=== PATIENT | male | born 1980 | race Hispanic/Latino ===

== ENCOUNTER 2024-03-15 20:36 | Emergency (ER) | payer SELFPAY ==
--- NOTE | ~2024-03-15 | XR_ITS ---
XR elbow RT min 3V Ordering provider: Julio Reese History: . fall, deformity . Comparison: None. FINDINGS: BONES: No acute fracture or dislocation. Ossification of the insertion of the triceps muscle is seen in the ulna. JOINT SPACES: Normal. SOFT TISSUES: Soft tissue swelling is seen posteriorly. No definite joint effusion. IMPRESSION: No acute osseous abnormality right elbow. Soft tissue swelling seen over the olecranon of the ulna. O ssification of the insertion of the triceps muscle. Reviewed, dictated and finalized at location A. IMPRESSION: No acute osseous abnormality right elbow. Soft tissue swelling seen over the ol ecranon of the ulna. Ossification of the insertion of the triceps muscle.
[2024-03-15 20:45] VITALS: BP 124/67; PULSE 85; RESP 18; TEMP 36.8; O2SAT 99
--- NOTE | 2024-03-15 22:48 | ED.GENADULT ---
HPI - General Adult General Chief complaint: Extremity Injury, Upper Stated complaint: fall Time Seen by Provider: 03/15/24 22:26 History of Present Illness HPI narrative: Patient is a 43-year-old male who presents to the emergency department this evening after a on his right elbow. Patient's states that he was doing a dance move and accidentally fell and landed right on his right elbow. Patient does have some swelling noted to the dorsum of the right upper extremity around the elbow joint and below it. Patient is able to move his right elbow without any difficulty and states that it is not really bothering him right now. His friend prompted him to come to the emergency department due to concern that tomorrow his can wake up with a lot of pain. No additional injuries or concerns at this time. Review of Systems Review of Systems: All systems are reviewed and are negative unless stated otherwise in the HPI. Exam Narrative: The patient was evaluated by myself in the emergency department. History is obtained from patient who is an independent historian and physical exam was performed. External medical records were reviewed at this time. Patient refused any pain medications at this time stating that he is not in a lot of pain. Imaging studies obtained included right elbow x-ray which was independently interpreted by me revealing no acute process, which is pending final radiology interpretation. Differential diagnosis considerations include elbow fracture, sprain, dislocation. Comorbidities impacting this visit include none. I have evaluated and discussed social determinants of health with the patient that could potentially impact subsequent diagnosis and treatment plans. On repeat assessment of the patient, reevaluation revealed that the patient is doing well and is in no acute distress. Patient symptoms have remained stable since he arrived to our emergency department. Repeat vital signs were all reviewed and noted to be stable. Differential diagnosis and treatment plan were discussed with the patient at bedside. Patient agrees with discussion and after shared medical decision making agrees with discharge. All questions were answered to the patient's satisfaction. Patient will follow up with his PCP in 3-5 days. He was instructed to rest and ice his shoulder joint and take ibuprofen and/or Tylenol as needed for pain. Patient was provided with strict return precautions and instructed to return to the emergency department if any new or worsening symptoms develop. The patient was discharged in stable condition. Course Vital Signs Vital signs: Vital Signs Temperature 98.2 F 03/15/24 20:45 Pulse Rate 85 03/15/24 20:45 Respiratory Rate 18 03/15/24 20:45 Blood Pressure 124/67 03/15/24 20:45 Pulse Oximetry 99 03/15/24 20:45 Oxygen Delivery Room Air 03/15/24 20:45 Temperature 98.2 F 03/15/24 20:45 Pulse Rate 85 03/15/24 20:45 Respiratory Rate 18 03/15/24 20:45 Blood Pressure 124/67 03/15/24 20:45 Pulse Oximetry 99 03/15/24 20:45 Oxygen Delivery Room Air 03/15/24 20:45 Medical Decision Making Vital Signs Vital Signs: Vital Signs Temperature 98.2 F 03/15/24 20:45 Pulse Rate 85 03/15/24 20:45 Respiratory Rate 18 03/15/24 20:45 Blood Pressure 124/67 03/15/24 20:45 Pulse Oximetry 99 03/15/24 20:45 Oxygen Delivery Room Air 03/15/24 20:45 Temperature 98.2 F 03/15/24 20:45 Pulse Rate 85 03/15/24 20:45 Respiratory Rate 18 03/15/24 20:45 Blood Pressure 124/67 03/15/24 20:45 Pulse Oximetry 99 03/15/24 20:45 Oxygen Delivery Room Air 03/15/24 20:45 Discharge Plan Discharge Clinical Impression: Elbow injury Patient Disposition: Home, Self-Care Condition: Improved Instructions: Antibiotic Form, Elbow Sprain (ED) Additional Instructions: Please follow-up with your family doctor within the next 3-5 days. Take ibupr
[2024-03-15 22:57] VITALS: BP 145/90; PULSE 67; RESP 18; O2SAT 100
== END 2024-03-15 22:59 | disposition home or self-care (01) ==
PROVIDERS: Emergency Provider Emergency Medicine
DX: S59.901A Unspecified injury of right elbow, initial encounter (principal); W18.39XA Other fall on same level, initial encounter; Y93.41 Activity, dancing
CPT/HCPCS: 73080; 99283

== ENCOUNTER 2024-09-21 22:12 | Emergency (ER) | payer SELFPAY ==
--- NOTE | ~2024-09-21 | XR_ITS ---
EXAMINATION: XR hand LT min 3V DATE: 09/21/2024 22:34 INDICATION: Left hand injury. TECHNIQUE: 3 views of left hand were obtained. COMPARISON: None. FINDINGS: There is a transverse fracture of diaphysis of second proximal phalanx in near-anatomic ali gnment. There is mild osteoarthritis of first carpometacarpal joint, first metacarpophalangeal joint, and first interphalangeal joint. IMPRESSION: 1. Transverse fracture of diaphysis of second proximal phalanx. Reviewed, dictated and finalized at location A. [facility]
[2024-09-21 22:17] VITALS: BP 114/68; PULSE 72; RESP 15; TEMP 36.6; O2SAT 100
--- NOTE | 2024-09-21 22:18 | ED.GENADULT ---
HPI - General Adult General Chief complaint: Extremity Injury, Upper Stated complaint: squeezed finger with metal Time Seen by Provider: 09/21/24 22:18 Source: patient and family Mode of arrival: ambulatory Limitations: language barrier History of Present Illness HPI narrative: This is a 43-year-old male presents to the ED for chief complaint of finger injury that occurred earlier today. Patient is Grenadian-speaking and his is here translating. Patient reports that he smashed his finger in a metal frame working on his car. Reports this happened around 1530. States originally he had pain but the bruising and swelling has increased since injury. Denies any further sites of pain or injury. Related Data Allergies Allergy/AdvReac Type Severity Reaction Status Date / Time No Known Drug Allergies Allergy Other Verified 09/21/24 22:21 Review of Systems Review of Systems: All systems as dictated in HPI Exam Narrative: GENERAL: Well-appearing, well-nourished, and in no acute distress. HEAD: Normocephalic, atraumatic. EYES: PERRLA and EOMI. ENT: Nares clear, no rhinorrhea or epistaxis. Mucous membranes moist. Oropharynx without tonsillar hypertrophy exudate or other lesions. NECK: Supple. No adenopathy or masses. CHEST: No respiratory distress. Clear to auscultation. No wheezes rales or rhonchi HEART: Regular rate and rhythm. No murmur heard. Normal peripheral pulses. ABDOMEN: Soft, nontender, nondistended, normal active bowel sounds. MSK: Left upper extremity: Tenderness to proximal phalanx of the 2nd digit. Moderate swelling and bruising to this region. Cap refill and sensation intact distally. Able to fully extend the finger but cannot make a fist. Right upper extremity: Benign SKIN: Warm, dry, no rash. NEURO: Alert and oriented x4. No focal deficits. PSYCH: Normal mood and affect. Course Vital Signs Vital signs: Vital Signs Temperature 97.9 F 09/21/24 22:17 Pulse Rate 72 09/21/24 22:17 Respiratory Rate 15 09/21/24 22:17 Blood Pressure 114/68 09/21/24 22:17 Pulse Oximetry 100 09/21/24 22:17 Temperature 97.9 F 09/21/24 22:17 Pulse Rate 72 09/21/24 22:17 Respiratory Rate 15 09/21/24 22:17 Blood Pressure 114/68 09/21/24 22:17 Pulse Oximetry 100 09/21/24 22:17 Medical Decision Making MDM Narrative Medical decision making narrative: This is a 43-year-old male who presents to the ED for chief complaint of left hand injury that occurred earlier today. Vitals are normal. Exam shows tenderness along the left hand 2nd proximal phalanx. Left hand x-ray: IMPRESSION: 1. Transverse fracture of diaphysis of second proximal phalanx. Patient was given Concrete for pain here. Rx for Concrete for breakthrough pain at home. Referral given for hand surgeon. Finger splint placed here. Patient will be discharged in stable condition. Supportive measures discussed and return precautions given. Patient is understanding and agreeable with plan for discharge with PCP/ hand follow-up. Vital Signs Vital Signs: Vital Signs Temperature 97.9 F 09/21/24 22:17 Pulse Rate 72 09/21/24 22:17 Respiratory Rate 15 09/21/24 22:17 Blood Pressure 114/68 09/21/24 22:17 Pulse Oximetry 100 09/21/24 22:17 Temperature 97.9 F 09/21/24 22:17 Pulse Rate 72 09/21/24 22:17 Respiratory Rate 15 09/21/24 22:17 Blood Pressure 114/68 09/21/24 22:17 Pulse Oximetry 100 09/21/24 22:17 Discharge Plan Discharge Clinical Impression: Fracture of proximal phalanx of digit of hand Patient Disposition: Home, Self-Care Condition: Stable Instructions: Antibiotic Form Additional Instructions: Exam and imaging today show fracture of the proximal phalanx of the index finger. Please use finger splint and follow-up with hand surgeon for further evaluation and treatment. Please take ibuprofen 600 mg every 6 hours for regular pain control. Use the Concrete for breakthrough pain with the ibuprofen is not working. If you have any new or worsening symptoms please return to the ER for further evaluation. Patient Language: Grenadian Prescriptions: New hydrocodone-acetaminophen 5-325 mg tablet 1 tablet PO Q8H PRN (Reason: pain) Qty: 12 0RF Follow-up/Referrals: Aspen Candelaria MD [Physician] - UNKNOWN,DOCTOR [Non-Staff] - Time of Disposition: 23:00
[2024-09-21] MEDS: HYDROcodone/acetaminophen (*CRX) 5-325 MG TABLET 1 TAB PO (22:53)
[2024-09-21] MEDS: TETANUS,DIPHTHERIA,AC PERTUSSIS ADULT (0.5 ML) BOOSTRIX IM (22:54)
[2024-09-21 23:17] VITALS: BP 137/86; PULSE 84; RESP 18; O2SAT 99
== END 2024-09-21 23:16 | disposition home or self-care (01) ==
PROVIDERS: Emergency Provider Physician Assistant
DX: S62.611A Displaced fracture of proximal phalanx of left index finger, initial encounter for closed fracture (principal); Z23 Encounter for immunization; W23.1XXA Caught, crushed, jammed, or pinched between stationary objects, initial encounter
CPT/HCPCS: 29130; 73130; 90471; 90715; 99284; A9270

== ENCOUNTER 2024-09-24 14:26 | Outpatient (CLI) | payer SELFPAY ==
--- NOTE | ~2024-09-24 | XR_ITS ---
EXAM: XR hand LT min 3V DATE: 09/24/2024 14:49 HISTORY: 3 DAYS POST FX IN CAST . COMPARISON: 09/21/2024. FINDINGS: Radiographic detail obscured by overlying cast material. Normal mineralization. Redemonstra tion of the transverse left second proximal phalanx shaft fracture, in near-anatomic alignment. No ne w fracture or dislocation. No lytic or blastic lesion. Mild scattered degenerative change. No erosion or periosteal change. Soft tissue swelling over the first digit. IMPRESSION: Stable left second proximal phalanx fracture. Reviewed, dictated and finalized at location K. ORINGS COMPOUNDER
== END 2024-09-24 14:27 | disposition home or self-care (01) ==
PROVIDERS: Visit Provider Physician Assistant Surgical
DX: S62.611A Displaced fracture of proximal phalanx of left index finger, initial encounter for closed fracture (principal); X58.XXXA Exposure to other specified factors, initial encounter
CPT/HCPCS: 73130

== ENCOUNTER 2024-10-08 14:48 | Outpatient (CLI) | payer SELFPAY ==
--- NOTE | ~2024-10-08 | XR_ITS ---
XR hand LT min 3V Ordering provider: Rhea Dailey PA-C History: . 2 week splint follow up. FX PROX PHALANX 2ND DIGIT . Comparison: September 24, 2024 FINDINGS: BONES: Fracture in the midshaft of the proximal phalanx of the second finger with no change in alignm ent. Surrounding cast is seen. JOINT SPACES: Well maintained. SOFT TISSUES: Unremarkable. IMPRESSION: Fracture midshaft of the proximal phalanx of the second finger with no change in alignment compared t o previous study. Reviewed, dictated and finalized at location A. [employer] IMPRESSION: Fracture midshaft of the proximal phalanx of the second finger with no change i n alignment compared to previous study.
== END 2024-10-08 14:49 | disposition home or self-care (01) ==
PROVIDERS: Visit Provider Physician Assistant Surgical
DX: S62.611A Displaced fracture of proximal phalanx of left index finger, initial encounter for closed fracture (principal); X58.XXXA Exposure to other specified factors, initial encounter
CPT/HCPCS: 73130

== ENCOUNTER 2024-10-23 13:47 | Outpatient (CLI) | payer SELFPAY ==
--- NOTE | ~2024-10-23 | XR_ITS ---
EXAMINATION: XR hand LT min 3V DATE: 10/23/2024 14:19 INDICATION: Fracture of the left second proximal phalanx TECHNIQUE: Posteroanterior, oblique and lateral views of the left hand were obtained. COMPARISON: None. FINDINGS: There is splinting material about the left hand including the second and third digits which mildly ob scures underlying fine bone and soft tissue detail. There is still readily discernible linear lucency extending across the transverse diaphyseal fracture of the left second proximal phalanx which remain s in essentially anatomic alignment. There is a small amount of callus formation which does not yet a ppear solidly bridging about the fracture. No other fractures identified. Mild. Polyarticular osteoar thritis at the first carpometacarpal, first metacarpophalangeal and a few interphalangeal joints with distal predominance. IMPRESSION: 1. Healing extra articular fracture of the left second proximal phalangeal diaphysis which remains in essentially anatomic alignment. Reviewed, dictated and finalized at location A. ENT TAG STRINGER IMPRESSION: 1. Healing extra articular fracture of the left second proximal phalangeal diap hysis which remains in essentially anatomic alignment.
== END 2024-10-23 13:48 | disposition home or self-care (01) ==
PROVIDERS: Visit Provider Physician Assistant Surgical
DX: S62.611A Displaced fracture of proximal phalanx of left index finger, initial encounter for closed fracture (principal); X58.XXXA Exposure to other specified factors, initial encounter
CPT/HCPCS: 73130

== ENCOUNTER 2024-11-13 11:30 | Outpatient (CLI) | payer SELFPAY ==
--- NOTE | ~2024-11-13 | XR_ITS ---
PA, oblique, and lateral views of the right index finger CLINICAL HISTORY: Fracture COMPARISON: 10/23/2024 FINDINGS: There is been mild interval healing of transverse fracture of the second proximal phalanx, with increased callus formation about the fracture site. Osseous alignment is unchanged. Joint spaces are intact. Soft tissues are unremarkable. IMPRESSION: Partial progressive healing of transverse fracture of the second proximal phalanx, as above. Reviewed, dictated and finalized at location M. SERVICES PROFESSIONAL IMPRESSION: Partial progressive healing of transverse fracture of the second proximal phala nx, as above.
== END 2024-11-13 11:31 | disposition home or self-care (01) ==
PROVIDERS: Visit Provider Plastic Surgery
DX: S62.611D Displaced fracture of proximal phalanx of left index finger, subsequent encounter for fracture with routine healing (principal); X58.XXXD Exposure to other specified factors, subsequent encounter
CPT/HCPCS: 73140

== ENCOUNTER 2025-07-15 14:40 | Emergency (ER) | payer SELFPAY ==
[2025-07-15 14:50] VITALS: BP 122/70; PULSE 83; RESP 16; TEMP 36.3; O2SAT 100
--- NOTE | 2025-07-15 14:54 | ED_ITS ---
HPI - Fall General Chief Complaint: Back Pain/Injury Stated Complaint: fall Time Seen by Provider: 07/15/25 14:40 Source: patient Mode of arrival: ambulatory Limitations: no limitations History of Present Illness HPI Narrative: Stuart is a 44-year-old Cameroonian-speaking male patient presenting to the clinic today with complaints left-sided flank, left lower back, and left elbow pain after falling off a 1 story roof. He reports he fell off a 1 story roof around 8:00 a.m. this morning. When he fell this knocked the air out of him. Denies hitting his head, loss of consciousness, or any neck pain. Denies hematuria. Denies any chest pain or shortness of breath when taking breaths. He has not taken any medications for pain. Significant other is at bedside and translating. Related Data Allergies Allergy/AdvReac Type Severity Reaction Status Date / Time No Known Drug Allergies Allergy Other Verified 11/13/24 13:14 Review of Systems Review of Systems: Pertinent positives per HPI. Patient denies any fever, chills, rash, headache, visual changes, dizziness, cough, runny nose, sore throat, shortness of breath, chest pain, palpitations, nausea, vomiting, diarrhea, constipation, abdominal pain, or any urinary issues. PMFSH Social History Social History Smoking status: Never smoker Alcohol intake: current Alcohol use details: Beers--with dinner Substance use: never Comments At the time of my signature, I reviewed and agree with the nursing past medical, surgical, social, and family history. There is no relevant family history pertinent to the patient complaint. Exam Narrative: General: Well-developed, well nourished, in no apparent distress Head: Normocephalic, atraumatic Eyes: Pupils equally round and reactive to light bilaterally, EOM intact, sclera and conjunctive clear, no discharge, lids normal Ears: TMs intact and clear, ear canals clear, no drainage, grossly hearing normal. Nose: Nares patent, no discharge, no inflammation, no sinus tenderness. Mouth: Oropharynx without lesions or masses, good dentition, MMM. Tongue midline, even rise and fall of uvula Neck: Supple, trachea midline, no enlargement of anterior or posterior cervical nodes, no thyroid masses or goiter palpable. Chest wall: Even rise and fall of the chest wall with respirations, no bruising or swelling noted Cardio: Regular rate and rhythm, s1 and s2 normal, no murmur appreciated. Resp: Clear to auscultation bilaterally anteriorly and posteriorly, no rhonchi, rales, wheezing or rubs Musculoskeletal: No deformity, no bruising, no tenderness to the midline cervical spine, thoracic spine, or lumbar spine, mild swelling and redness noted to the left flank with tenderness to palpation over the left flank and low back paraspinous musculature, swelling and redness to the left posterior medial elbow-tender to palpation, pain with flexion extension of the elbow, grossly normal range of motion, muscle strength strong and equal, peripheral pulse strong, no edema, no cyanosis, normal gait and station Neuro: Alert and oriented x4 with normal speech, no focal deficits, cranial nerves I through XII intact, muscle strength 5 out of 5, sensation intact bilaterally, negative Romberg test Course Course Emergency Course: Portions of this record may have been created with voice recognition software. Level of Care: Express Care Visit Vital Signs Vital signs: Vital Signs Temperature 36.3 C L 07/15/25 14:50 Pulse Rate 83 07/15/25 14:50 Respiratory Rate 16 07/15/25 14:50 Blood Pressure 122/70 07/15/25 14:50 Pulse Oximetry 100 07/15/25 14:50 Temperature 36.3 C L 07/15/25 14:50 Pulse Rate 83 07/15/25 14:50 Respiratory Rate 16 07/15/25 14:50 Blood Pressure 122/70 07/15/25 14:50 Pulse Oximetry 100 07/15/25 14:50 Vital signs reviewed MDM - Fall MDM Narrative Medical decision making narrative: At the time of visit patient is resting comfortably on the exam table. Patient appears to be nontoxic. Complaints left-sided flank, left lower back, and left elbow pain after falling off a 1 story roof. He reports he fell off a 1 story roof around 8:00 a.m. this morning. When he fell this knocked the air out of him. Denies hitting his head, loss of consciousness, or any neck pain. Denies hematuria. Denies any chest pain or shortness of breath when taking breaths. He has not taken any medications for pain. On exam patient has no deformity, no bruising, no tenderness to the midline cervical spine, thoracic spine, or lumbar spine, there is mild swelling and redness noted to the left flank with tenderness to palpation over the left flank and low back paraspinous musculature, swelling and redness to the left posterior medial elbow-tender to palpation, pain with flexion extension of the elbow, grossly normal range of motion of elbow. Plan: Recommend transfer to higher level of care due to mechanism of injury- Fell off roof-and patient is complaining of left flank/left back, and left elbow pain. Explained to the patient and the spouse that we cannot do labs or CT scan in the clinic and would recommend further evaluation to rule out further internal injury. Patient and spouse voiced understanding and would like to be transfer to [facility]. Contacted the access line at [facility] in spoke with Dr. Marcin Martin- Dr. Martin stated that they are currenly in the black and can not accept this patient at this time. Would recommend trying another facility. Discussed this with the patient and spouse. They would like to try [facility] ER for transfer. Contact Yeyo access line nurse at [facility] and Dr. Eddy accepts patient for transfer. Patient VS are stable. He did not hit his head, denies neck pain, neuro exam is normal, Patient may go by private car to [facility] ER for further evaluation. Differential Diagnosis Differential diagnosis: Likely other (Flank contusion, kidney injury, splenic injury, rib fracture, elbow fracture, soft tissue injury, internal bleeding) Discharge Plan Discharge Clinical Impression: Acute left flank pain, Pain and swelling of left elbow Low back pain Qualifiers: Chronicity: acute Back pain laterality: left Sciatica presence: without sciatica Qualified Code(s): M54.50 - Low back pain, unspecified Accidental fall from building Qualifiers: Encounter type: initial encounter Qualified Code(s): W13.9XXA - Fall from, out of or through building, not otherwise specified, initial encounter Patient Disposition: Acute Care Hospital Condition: Stable Instructions: Antibiotic Form Patient Language: Cameroonian Follow-up/Referrals: Paul Hopkins MD [Primary Care Provider, Family Practice] Time of Disposition: 15:14 Quality NIHSS Nursing Documentation ED NIHSS nursing documentation: reviewed/agree
--- OUTSIDE RECORDS SUMMARY | 2025-07-15 15:35 | XMS_ITS | Encounter Summary ---
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
--- OUTSIDE RECORDS SUMMARY | 2025-07-15 15:39 | XMS_ITS | Clinical Summary ---
Author Organization [facility] Address [address] [place] [address] Care Team Providers Care Rehab Consultant Name Role Phone Unavailable Primary Care Provider Unavailabl e Source Comments [facility],non-owned Affiliates and Associated Physician Practices is amultiple site organization consisting of ambulatory clinics and hospital sitesin [place], [place], [place] and [place]. This disclosure is being madepursuant to the Care Everywhere program and may not contain all information available regarding this patient. 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 Gender Identity Not on file Sexual Orientation Not on file Plan of Treatment Health Maintenance Due Date Last Done Comments LIPID TESTING 1980 HIV SCREENING 1995 HEPATITIS C SCREENING 10/18/1998 DTAP/TDAP/TD VACCINES (1 - Tdap) 1999 HEPATITIS B VACCINE (1 of 3 - 19+ 3-dose series) 1999 HPV VACCINE (1 - 3-dose SCDM series) 2007 DEPRESSION SCREENING 10/03/2024 COVID-19 VACCINE ( - 2023-2 5 season) 2025 INFLUENZA VACCINE (#1) 2025 ZOSTER VACCINE (1 of 2) 2030 HIB VACCINE Aged Out No longer eligi ble based on patient's age to complete this topic MENINGOCOCCAL (Group B) VACC INE SHARED DECISION-MAKING Aged Out No longer eligibl e based on patient's age to complete this topic MENINGOCOCCAL GROUPS A/C/Y/W VACCINE Aged Out No longer eligible b ased on patient's age to complete this topic PNEUMOCOCCAL VACCINE Aged Out No long er eligible based on patient's age to complete this topic
== END 2025-07-15 15:23 | disposition short-term general hospital (02) ==
LOC: EXPTROY 14:42
PROVIDERS: Emergency Provider Nurse Practitioner Family; PCP Emergency Medicine
DX: M54.50 Low back pain, unspecified (principal); W17.89XA Other fall from one level to another, initial encounter
CPT/HCPCS: 99212; G0463